=== PATIENT | male | born 1960 | race Caucasian/White ===

== ENCOUNTER 2024-07-18 16:17 | Outpatient (CLI) | payer MEDICARE, OTHER | END 2024-07-18 16:18 | disposition home or self-care (01) | LOC: CSHWCC 16:17 | PROVIDERS: ATTEND Nurse Practitioner Family | DX: L89.213 Pressure ulcer of right hip, stage 3 (principal); L89.223 Pressure ulcer of left hip, stage 3; G82.50 Quadriplegia, unspecified | CPT/HCPCS: 11042; 11045 ==

== ENCOUNTER 2024-08-01 14:02 | Outpatient (CLI) | payer MEDICARE, OTHER | END 2024-08-01 14:03 | disposition home or self-care (01) | LOC: CSHWCC 14:02 | PROVIDERS: ATTEND Nurse Practitioner Family | DX: L89.213 Pressure ulcer of right hip, stage 3 (principal); L89.223 Pressure ulcer of left hip, stage 3; G82.50 Quadriplegia, unspecified | CPT/HCPCS: 11042; 11045; 99214; G0463 ==

== ENCOUNTER 2024-08-25 14:43 | Outpatient (CLI) | payer MEDICARE, OTHER | END 2024-08-25 14:44 | disposition home or self-care (01) | LOC: CSHWCC 14:43 | PROVIDERS: ATTEND Nurse Practitioner Family | DX: L89.213 Pressure ulcer of right hip, stage 3 (principal); L89.223 Pressure ulcer of left hip, stage 3; L89.013 Pressure ulcer of right elbow, stage 3; L89.023 Pressure ulcer of left elbow, stage 3; G82.50 Quadriplegia, unspecified | CPT/HCPCS: 11042; 11045 ==

== ENCOUNTER 2024-09-08 14:09 | Outpatient (CLI) | payer MEDICARE, OTHER | END 2024-09-08 14:10 | disposition home or self-care (01) | LOC: CSHWCC 14:09 | PROVIDERS: ATTEND Nurse Practitioner Family | DX: L89.213 Pressure ulcer of right hip, stage 3 (principal); L89.223 Pressure ulcer of left hip, stage 3; L89.013 Pressure ulcer of right elbow, stage 3; L89.023 Pressure ulcer of left elbow, stage 3; G82.50 Quadriplegia, unspecified | CPT/HCPCS: 11042; 11045; 99212; G0463 ==

== ENCOUNTER 2025-03-01 13:07 | Outpatient (CLI) | payer MEDICARE, OTHER | END 2025-03-01 13:08 | disposition home or self-care (01) | LOC: CSHWCC 13:07 | PROVIDERS: ATTEND Nurse Practitioner Family | DX: L89.214 Pressure ulcer of right hip, stage 4 (principal); L89.013 Pressure ulcer of right elbow, stage 3; L89.023 Pressure ulcer of left elbow, stage 3; L89.620 Pressure ulcer of left heel, unstageable; L89.893 Pressure ulcer of other site, stage 3; L97.521 Non-pressure chronic ulcer of other part of left foot limited to breakdown of skin; L97.811 Non-pressure chronic ulcer of other part of right lower leg limited to breakdown of skin; E46 Unspecified protein-calorie malnutrition; G82.50 Quadriplegia, unspecified | CPT/HCPCS: 11042 ==

== ENCOUNTER 2025-03-28 12:47 | Outpatient (CLI) | payer MEDICARE, OTHER | END 2025-03-28 12:48 | disposition home or self-care (01) | LOC: CSHWCC 12:47 | PROVIDERS: ATTEND Nurse Practitioner Family | DX: L89.214 Pressure ulcer of right hip, stage 4 (principal); L89.023 Pressure ulcer of left elbow, stage 3; L89.623 Pressure ulcer of left heel, stage 3; L89.893 Pressure ulcer of other site, stage 3; L97.521 Non-pressure chronic ulcer of other part of left foot limited to breakdown of skin; L97.811 Non-pressure chronic ulcer of other part of right lower leg limited to breakdown of skin; E46 Unspecified protein-calorie malnutrition; G82.20 Paraplegia, unspecified ==

== ENCOUNTER 2025-04-13 11:27 | Outpatient (CLI) | payer MEDICARE, OTHER | END 2025-04-13 11:28 | disposition home or self-care (01) | LOC: CSHWCC 11:27 | PROVIDERS: ATTEND Nurse Practitioner Family | DX: L89.214 Pressure ulcer of right hip, stage 4 (principal); L89.023 Pressure ulcer of left elbow, stage 3; L89.623 Pressure ulcer of left heel, stage 3; L89.893 Pressure ulcer of other site, stage 3; L97.521 Non-pressure chronic ulcer of other part of left foot limited to breakdown of skin; L97.811 Non-pressure chronic ulcer of other part of right lower leg limited to breakdown of skin; E46 Unspecified protein-calorie malnutrition; G82.50 Quadriplegia, unspecified | CPT/HCPCS: 11042; G0463; 99213 ==

== ENCOUNTER 2025-04-27 12:32 | Outpatient (CLI) | payer MEDICARE, OTHER | END 2025-04-27 12:33 | disposition home or self-care (01) | LOC: CSHWCC 12:32 | PROVIDERS: ATTEND Nurse Practitioner Family | DX: L89.214 Pressure ulcer of right hip, stage 4 (principal); L89.023 Pressure ulcer of left elbow, stage 3; L89.623 Pressure ulcer of left heel, stage 3; L89.893 Pressure ulcer of other site, stage 3; L97.521 Non-pressure chronic ulcer of other part of left foot limited to breakdown of skin; L97.811 Non-pressure chronic ulcer of other part of right lower leg limited to breakdown of skin; E46 Unspecified protein-calorie malnutrition; G82.50 Quadriplegia, unspecified | CPT/HCPCS: 11042 ==

== ENCOUNTER 2025-06-07 12:45 | Outpatient (CLI) | payer MEDICARE, OTHER | END 2025-06-07 12:46 | disposition home or self-care (01) | LOC: CSHWCC 12:45 | PROVIDERS: ATTEND Nurse Practitioner Family | DX: L89.214 Pressure ulcer of right hip, stage 4 (principal); L89.023 Pressure ulcer of left elbow, stage 3; L89.893 Pressure ulcer of other site, stage 3; L89.613 Pressure ulcer of right heel, stage 3; E46 Unspecified protein-calorie malnutrition; G82.50 Quadriplegia, unspecified | CPT/HCPCS: 11042; 11044; 11045; G0463; 99214 ==